=== PATIENT | male | born 1945 | race Caucasian/White ===

== ENCOUNTER → 2019-03-17 | Outpatient (CLI) | payer MEDICARE, BC ==
--- NOTE | 2019-03-18 09:05 | CT ---
EXAM DESCRIPTION: Abdomen/Pelvis w/Contrast CLINICAL HISTORY: DIVERTICULITIS OF INTESTINE WITHOUT PERFORATION COMPARISON: None TECHNIQUE: Postcontrast multidetector CT imaging of the abdomen and pelvis was performed. Multiplanar reconstructions were generated. This exam was performed according to our departmental dose-optimization program which includes automated exposure control, adjustment of the mA and/or kV according to patient size and/or use of iterative reconstruction technique. FINDINGS: Old granulomatous disease noted throughout the lung bases. No acute cardiopulmonary disease process. No aggressive liver lesions. The gallbladder is contracted. A single gallstone is noted measuring 2.1 cm. No pericholecystic edema. No pancreatic mass or inflammation is demonstrated. The spleen is normal in size. The bilateral adrenal glands are normal in appearance. 6 mm nonobstructing left-sided nephrolithiasis. No aggressive renal lesions. No ureteral stones. No bladder stones. No abnormal bladder mucosal enhancement. Brachii therapy rods are noted within the prostate. Numerous diverticula are noted throughout the distal descending and sigmoid colon. Subtle stranding is noted adjacent to several diverticula of the distal descending colon (coronal series 602 images 38 through 42 suspicious for a very early uncomplicated appearing diverticulitis. There is no kei perforation, free intraperitoneal gas, abnormal fluid collection or thrombophlebitis. The remainder of the colon is unremarkable. No appendicitis is demonstrated. Small hiatal hernia. Moderate atherosclerotic disease. Degenerative changes centered within the hips and the lumbar spine. No aggressive lytic or blastic osseous lesions are demonstrated. IMPRESSION: Subtle very early distal colonic diverticulitis. No secondary complication. Advanced/severe distal colonic diverticulosis. Cholelithiasis. Small hiatal hernia. Central nonobstructing left-sided nephrolithiasis. Electronically signed by: Thong Harden MD 03/18/2019 9:04 AM CDT
== END ==
LOC: LAB.O 08:30
PROVIDERS: ATTEND Nurse Practitioner Family
DX: K57.32 Diverticulitis of large intestine without perforation or abscess without bleeding (principal); K57.30 Diverticulosis of large intestine without perforation or abscess without bleeding; N20.0 Calculus of kidney; K44.9 Diaphragmatic hernia without obstruction or gangrene; K80.20 Calculus of gallbladder without cholecystitis without obstruction

== ENCOUNTER → 2019-05-19 | Outpatient (CLI) | payer MEDICARE, BC ==
--- NOTE | 2019-05-19 20:00 | US ---
EXAM DESCRIPTION: Abdomen,Complete: Ultrasound. CLINICAL HISTORY: 73 years MaleUNSPECIFIED ABDOMINAL PAIN COMPARISON: None Available. TECHNIQUE: Transabdominal scanning: grayscale and Doppler modes. FINDINGS: Gallbladder: Large echogenic stone with acoustic shadowing measuring 2.3 cm. Wall thickness 2.3 mm. No fluid around the wall and nontender with transducer pressure. Common bile duct: 5.1 mm normal caliber. Liver: Long axis right lobe 15.1 cm. Diffuse increased echogenicity of the liver. Physiologic blood flow. Ducts not dilated. Smooth capsule with no ascites. Pancreas: Normal echogenicity with no focal lesions. Duct not dilated.. Abdominal aorta: Normal caliber of the aorta from the proximal segment to the distal bifurcation. IVC: visualized; normal caliber. Spleen normal echogenicity; long axis measurement is 12 cm. Right kidney: 10.8 cm long axis. Normal cortical thickness and echogenicity. No hydronephrosis or echogenic stones. Left kidney: 11 cm long axis. Normal cortical thickness and echogenicity. Focal echogenicity 4.3 mm but no acoustic shadowing may represent a fatty deposit. 7.6 mm cyst in 10.2 x 8 mm cyst. No hydronephrosis or perinephric fluid. IMPRESSION: 1. Large echogenic gallstones with acoustic shadowing. Nontender and no fluid or on the wall. Common bile duct caliber normal. 2. Fatty liver is normal size. Normal ducts and physiologic vascularity. Smooth capsule with no ascites. Pancreas is negative. 3. Normal caliber of the abdominal aorta and IVC. Spleen and right kidney are unremarkable. 2 cysts in the left kidney. Electronically signed by: Dave Hutchinson MD 05/19/2019 7:58 PM NUTRITION TECH
== END ==
LOC: US 08:00
PROVIDERS: ATTEND Family Medicine
DX: K80.20 Calculus of gallbladder without cholecystitis without obstruction (principal); K76.0 Fatty (change of) liver, not elsewhere classified; N28.1 Cyst of kidney, acquired

== ENCOUNTER 2019-07-07 05:36 | Day surgery (SDC) | payer MEDICARE ==
[2019-07-07] MEDS ORDERED: KETOROLAC TROMETHAMINE INJ 30 MG/ML VIAL ONE (07:00)
[2019-07-07] MEDS ORDERED: PROPOFOL 200 MG/20 ML VIAL IV ONE (07:00)
[2019-07-07] MEDS ORDERED: raNITIdine HCL INJ 25 MG/ML VIAL ONE (07:00)
[2019-07-07] MEDS ORDERED: LIDOCAINE 1% 10 ML VIAL INJ ONE (07:00)
[2019-07-07] MEDS ORDERED: BUPIVACAINE 0.5% W/EPI 30 ML VIAL INJ ONE (08:37)
[2019-07-07] MEDS: LACTATED RINGERS 1,000 ML ONE ×2 (09:36→11:13)
[2019-07-07] MEDS ORDERED: fentaNYL CITRATE INJ 50 MCG/ML AMP ONE (10:07)
[2019-07-07] MEDS ORDERED: ROCURONIUM BROMIDE 10 MG/ML VIAL ONE (10:07)
[2019-07-07] MEDS ORDERED: MIDAZOLAM INJ 2 MG/2 ML VIAL ONE (10:07)
[2019-07-07] MEDS ORDERED: SUGAMMADEX SODIUM 200 MG/2 ML VIAL IV ONE (11:02)
--- NOTE | 2019-07-07 11:21 | OP ---
DATE OF PROCEDURE: 07/07/19 PREOPERATIVE DIAGNOSIS: 1. Symptomatic cholelithiasis. POSTOPERATIVE DIAGNOSIS: 1. Symptomatic cholelithiasis. PROCEDURE: 1. Laparoscopic cholecystectomy. SURGEON: Jak Dunlap MD. ANESTHESIA: General and local. FINDINGS: The anatomy was clearly visualized. There was moderately large 2 to 2.5 cm stone. COMPLICATIONS: None. ESTIMATED BLOOD LOSS: Minimal. SPECIMEN: Gallbladder. CONDITION: Stable. PLAN: Discharge. INDICATION: As stated. PROCEDURE: General anesthesia was induced. The patient was prepped and draped in sterile fashion. Marcaine 0.5% with epinephrine was used at all incision sites. While maintaining upward traction, a awais was made into the base of the umbilicus. Veress needle was introduced. There was free flow of fluid into the peritoneal cavity which was insufflated to an appropriate level with CO2 gas. The 5 mm trocar was placed followed by the camera. There was no evidence of bleeding or bowel injury. The patient was positioned and subxiphoid and lateral ports were placed. The gallbladder fundus was easily identified. It was grasped and retracted superiorly and laterally. The infundibulum was grasped. The infundibular structures were dissected free. Both the duct and artery were triply ligated. The gallbladder was then dissected off the fossa in toto and removed in the EndoCatch bag. We had to extend the incision just a little bit to accommodate the moderately large stone. The fossa was examined. It remained hemostatic. The clips were intact. There was no bleeding or bile leak. The area was irrigated and aspirated. All aspirate was clear. At that point, the subxiphoid fascia was then closed with 0 Vicryl using the suture passer. It was airtight and non-bleeding. The remaining trocars were removed. There was no bleeding from the trocar sites. The patient was awakened and taken to Recovery in to be discharged. [id number] [facility]
[2019-07-07 15:19] VITALS: BP 135/76; TEMP 18; O2SAT 97
== END 2019-07-07 13:10 | disposition home or self-care (01) ==
LOC: AMB 05:36
PROVIDERS: ATTEND Surgery
DX: K80.10 Calculus of gallbladder with chronic cholecystitis without obstruction (principal); I10 Essential (primary) hypertension; E78.00 Pure hypercholesterolemia, unspecified; E03.9 Hypothyroidism, unspecified; N40.0 Benign prostatic hyperplasia without lower urinary tract symptoms; Z87.891 Personal history of nicotine dependence; Z86.73 Personal history of transient ischemic attack (TIA), and cerebral infarction without residual deficits; Z85.46 Personal history of malignant neoplasm of prostate; Z79.82 Long term (current) use of aspirin; Z79.899 Other long term (current) drug therapy
CPT/HCPCS: 00790; 47562; 88304; J1885; J2250; J2780; J3010; J3490; J7120

== ENCOUNTER → 2019-09-22 | Outpatient (CLI) | payer MEDICARE | LOC: GMA MATASK 10:43 | PROVIDERS: ATTEND Family Medicine | DX: I10 Essential (primary) hypertension (principal); E78.2 Mixed hyperlipidemia ==

== ENCOUNTER → 2020-03-28 | Outpatient (CLI) | payer MEDICARE | LOC: GMA MATASK 10:52 | PROVIDERS: ATTEND Family Medicine | DX: Z12.5 Encounter for screening for malignant neoplasm of prostate (principal); I10 Essential (primary) hypertension; E11.9 Type 2 diabetes mellitus without complications; E03.9 Hypothyroidism, unspecified | CPT/HCPCS: 84443; 84550; G0103 ==